=== PATIENT | female | born 1945 | race Caucasian/White ===

== ENCOUNTER 2017-11-22 17:11 | Inpatient (IN) ==
[2017-11-22 19:10] LABS: Basophils # 0.1 10*3/uL (0.0-0.2); Basophils % 0.8 % (0.0-0.8); Eosinophils # 0.1 10*3/uL (0.0-0.87); Eosinophils % 1.7 % (0.00-10.9); Hematocrit 41.3 VOL% (35.7-47.0); Hemoglobin 14.1 GM/DL (12.0-16.0); Immature Granulocytes % 0.3 %; Immature Granulocytes Absolute 0.02 #; Lymphocytes # 2.7 10*3/uL (1.4-4.0); Lymphocytes % 36.3 % (21.3-54.2); Mean Corpuscular HGB Conc 34.1 GM/DL (32-36); Mean Corpuscular Hemoglobin 32 PG (27-34); Mean Corpuscular Volume 94.5 FL (87-102); Mean Platelet Volume 9.9 FL (9.6-12.0); Monocytes # 0.6 10*3/uL (0.11-0.8); Monocytes % 7.3 % (1.7-12.7); Neutrophils % 53.6 % (38.7-73.9); Platelet Count 252 T/CUMM (130-400); Red Blood Count 4.37 MC/CUMM (3.8-5.5); Red Cell Distribution Width 12.4 % (9.3-17.3); White Blood Count 7.5 T/CUMM (4-12)
[2017-11-22 19:26] LABS: PT Patient Result 10.7 SECS
[2017-11-22 19:39] LABS: Albumin 4.2 G/DL (3.4-5.0); Bilirubin,Total 0.5 MG/DL (0.2-1.0); Calcium 9.1 MG/DL (8.5-10.1); Osmolality,Calculated 277.7 MOS/KG (273-304); Potassium 4.4 MMOL/L (3.5-5.1); Total Protein 7.6 G/DL (6.4-8.3)
[2017-11-22 19:41] LABS: Troponin I Only < 0.015 NG/ML (0.00-0.045)
[2017-11-22 20:11] LABS: Apearance,Urine CLOUDY (Clear); Bacteria,Urine Many /HPF (Few); Bilirubin,Urine Negative (Negative); Blood, Urine Negative (Negative); Glucose,Urine (UA) Negative (Negative); Ketones,Urine Negative (Negative); Mucus,Urine Moderate /LPF (Occasional); Nitrite,Urine Positive (Negative); Protein,Urine Negative; RBC,Urine 36 /HPF (0-4); Squamous Epithelial Cell,Urine Occasional /HPF (0-10); Urine Color Yellow (Yellow); Urine Specific Gravity 1.018 (1.001-1.035); Urine Urobilinogen < 2.0 EU/DL (0.2-1.0); WBC,Urine 7 /HPF (0-6)
[2017-11-22] MEDS ORDERED: LABETALOL 20 MG/4 ML SYRINGE IV PRN (20:50)
[2017-11-22 21:34] LABS: Risk Ratio 7.23; VLDL CHOLESTEROL 37.8 MG/DL
[2017-11-22] MEDS: SODIUM CHLORIDE 0.9% 1,000 ML IV SCH (22:40)
[2017-11-22] MEDS: ENOXAPARIN 40 MG/0.4 ML SYRINGE SUBCUT SCH (22:41)
[2017-11-22] MEDS: ROSUVASTATIN 20 MG TABLET PO SCH (22:41)
[2017-11-22] MEDS: LEVOFLOXACIN INJ 500 MG in PREMIX 1 EACH IV SCH (22:45)
[2017-11-23 08:34] LABS: Basophils # 0.1 10*3/uL (0.0-0.2); Eosinophils # 0.1 10*3/uL (0.0-0.87); Eosinophils % 1.9 % (0.00-10.9); Hematocrit 39.1 VOL% (35.7-47.0); Hemoglobin 13.6 GM/DL (12.0-16.0); Immature Granulocytes % 0.5 %; Immature Granulocytes Absolute 0.03 #; Lymphocytes # 2.5 10*3/uL (1.4-4.0); Lymphocytes % 40.3 % (21.3-54.2); Mean Corpuscular HGB Conc 34.8 GM/DL (32-36); Mean Corpuscular Hemoglobin 32 PG (27-34); Mean Corpuscular Volume 92.7 FL (87-102); Mean Platelet Volume 9.7 FL (9.6-12.0); Monocytes # 0.5 10*3/uL (0.11-0.8); Monocytes % 7.3 % (1.7-12.7); Neutrophils # 3.1 10*3/uL (1.4-7.4); Platelet Count 262 T/CUMM (130-400); Red Blood Count 4.22 MC/CUMM (3.8-5.5); Red Cell Distribution Width 12.6 % (9.3-17.3); White Blood Count 6.3 T/CUMM (4-12)
[2017-11-23] MEDS ORDERED: INFLUENZA VIRUS VACCINE 0.5 ML SYRINGE IM ONE (09:00)
[2017-11-23] MEDS: ASPIRIN 325 MG TABLET PO SCH (09:24)
[2017-11-23 09:35] LABS: Calcium 8.2 MG/DL (8.5-10.1); Osmolality,Calculated 276.5 MOS/KG (273-304); Potassium 4.1 MMOL/L (3.5-5.1)
[2017-11-23] MEDS: SODIUM CHLORIDE 0.9% 1,000 ML IV SCH (14:45)
[2017-11-23] MEDS ORDERED: AMITRIPTYLINE 25 MG TABLET PO SCH (21:00)
[2017-11-23] MEDS ORDERED: ESCITALOPRAM 10 MG TABLET PO SCH (21:00)
[2017-11-23] MEDS ORDERED: ESTRADIOL 1 MG TABLET PO SCH (21:00)
[2017-11-23] MEDS ORDERED: medroxyPROGESTERone 5 MG TABLET PO SCH (21:00)
[2017-11-23] MEDS: LEVOFLOXACIN INJ 500 MG in PREMIX 1 EACH IV SCH (21:02)
[2017-11-23] MEDS: ENOXAPARIN 40 MG/0.4 ML SYRINGE SUBCUT SCH (21:03)
[2017-11-23] MEDS: ROSUVASTATIN 20 MG TABLET PO SCH (21:03)
[2017-11-24] MEDS: ASPIRIN 325 MG TABLET PO SCH (08:38)
[2017-11-24 12:27] VITALS: BP 164/87
== END 2017-11-24 14:35 | disposition home or self-care (01) | DRG 65 ==
LOC: N.ED 17:11 → N.EDINP 20:50 → N.4E 21:48
PROVIDERS: ADMIT Internal Medicine; ATTEND Internal Medicine

== ENCOUNTER 2019-02-14 10:28 | Observation (INO) ==
[2019-02-14 11:05] LABS: Basophils # 0.1 10*3/uL (0.0-0.2); Eosinophils # 0.2 10*3/uL (0.0-0.87); Eosinophils % 2.5 % (0.00-10.9); Hematocrit 41.7 VOL% (35.7-47.0); Hemoglobin 13.6 GM/DL (12.0-16.0); Immature Granulocytes % 0.4 %; Immature Granulocytes Absolute 0.03 #; Lymphocytes # 2.4 10*3/uL (1.4-4.0); Mean Corpuscular HGB Conc 32.6 GM/DL (32-36); Mean Corpuscular Hemoglobin 31 PG (27-34); Mean Corpuscular Volume 93.5 FL (87-102); Mean Platelet Volume 10.4 FL (9.6-12.0); Monocytes # 0.5 10*3/uL (0.11-0.8); Neutrophils # 3.7 10*3/uL (1.4-7.4); Neutrophils % 54.1 % (38.7-73.9); Platelet Count 248 T/CUMM (130-400); Red Blood Count 4.46 MC/CUMM (3.8-5.5); White Blood Count 6.9 T/CUMM (4-12)
[2019-02-14 11:25] LABS: Alanine Aminotransferase 19 U/L (13-56); Albumin 4.1 G/DL (3.4-5.0); Alkaline Phosphatase 140 U/L (45-117); Aspartate Amino Transferase 20 U/L (0-37); Bilirubin,Total < 0.39 MG/DL (0.2-1.0); Blood Urea Nitrogen 24 MG/DL (7-18); Calcium 9.2 MG/DL (8.5-10.1); Glucose 93 MG/DL (74-106); Osmolality,Calculated 278.7 MOS/KG (273-304); Potassium 4.3 MMOL/L (3.5-5.1); Sodium 138 MMOL/L (136-145); Total Protein 7.3 G/DL (6.4-8.3)
[2019-02-14] MEDS ORDERED: SODIUM CHLORIDE 0.9% 500 ML IV STA (11:59)
[2019-02-14 13:20] LABS: Apearance,Urine CLEAR (Clear); Bilirubin,Urine Negative (Negative); Blood, Urine Negative (Negative); Glucose,Urine (UA) Negative (Negative); Hyaline Casts,Urine 1 /LPF (0-3); Ketones,Urine Negative (Negative); Mucus,Urine Occasional /LPF (Occasional); Nitrite,Urine Negative (Negative); Protein,Urine Negative; RBC,Urine 1 /HPF (0-4); Urine Color Colorless (Yellow); Urine Specific Gravity 1.004 (1.001-1.035); Urine Urobilinogen < 2.0 EU/DL (0.2-1.0); WBC,Urine 1 /HPF (0-6)
[2019-02-14] MEDS ORDERED: MORPHINE 4 MG/1 ML VIAL IV PRN (15:13)
[2019-02-14] MEDS ORDERED: ACETAMINOPHEN 325 MG TABLET PO PRN (15:13)
[2019-02-14] MEDS ORDERED: ONDANSETRON 4 MG/2 ML VIAL IV PRN (15:13)
[2019-02-14] MEDS: DEXAMETHASONE 0.1% OPH SOLN 5 ML BOTTLE LEFT EYE SCH ×3 (16:14→21:30)
[2019-02-14] MEDS: SODIUM CHLORIDE 0.9% 1,000 ML IV SCH (16:27)
[2019-02-14 16:56] LABS: Troponin I < 0.015 NG/ML (0.00-0.045)
[2019-02-14 18:39] LABS: Folate 13.4 NG/ML (5.4-24.0)
[2019-02-14] MEDS ORDERED: ENOXAPARIN 40 MG/0.4 ML SYRINGE SUBCUT SCH (21:00)
[2019-02-14] MEDS: ASPIRIN EC 81 MG TABLET PO SCH (21:25)
[2019-02-14] MEDS: AMITRIPTYLINE 25 MG TABLET PO SCH (21:25)
[2019-02-14] MEDS: ESCITALOPRAM 10 MG TABLET PO SCH (21:25)
[2019-02-14] MEDS: DOCUSATE SODIUM 100 MG CAPSULE PO SCH (21:32)
[2019-02-15] MEDS: SODIUM CHLORIDE 0.9% 1,000 ML IV SCH ×3 (01:06→17:58)
[2019-02-15 04:13] LABS: Basophils # 0.1 10*3/uL (0.0-0.2); Basophils % 0.8 % (0.0-0.8); Eosinophils # 0.2 10*3/uL (0.0-0.87); Eosinophils % 3.2 % (0.00-10.9); Hematocrit 36.5 VOL% (35.7-47.0); Hemoglobin 11.7 GM/DL (12.0-16.0); Immature Granulocytes % 0.3 %; Immature Granulocytes Absolute 0.02 #; Lymphocytes % 48.7 % (21.3-54.2); Mean Corpuscular HGB Conc 32.1 GM/DL (32-36); Mean Corpuscular Hemoglobin 30 PG (27-34); Mean Corpuscular Volume 94.3 FL (87-102); Mean Platelet Volume 10.5 FL (9.6-12.0); Monocytes # 0.5 10*3/uL (0.11-0.8); Monocytes % 7.9 % (1.7-12.7); Neutrophils # 2.4 10*3/uL (1.4-7.4); Neutrophils % 39.1 % (38.7-73.9); Platelet Count 213 T/CUMM (130-400); Red Blood Count 3.87 MC/CUMM (3.8-5.5); Red Cell Distribution Width 13.1 % (9.3-17.3); White Blood Count 6.2 T/CUMM (4-12)
[2019-02-15 04:27] LABS: Albumin 3.3 G/DL (3.4-5.0); Bilirubin,Total 0.8 MG/DL (0.2-1.0); Calcium 8.1 MG/DL (8.5-10.1); Osmolality,Calculated 280.4 MOS/KG (273-304); Risk Ratio 7.31; Total Protein 6.2 G/DL (6.4-8.3); VLDL CHOLESTEROL 50.2 MG/DL
[2019-02-15] MEDS: PANTOPRAZOLE 40 MG TABLET PO SCH (08:24)
[2019-02-15] MEDS: DOCUSATE SODIUM 100 MG CAPSULE PO SCH ×2 (08:24→22:30)
[2019-02-15] MEDS: DEXAMETHASONE 0.1% OPH SOLN 5 ML BOTTLE LEFT EYE SCH ×4 (08:25→22:28)
[2019-02-15] MEDS ORDERED: BISACODYL 5 MG TABLET PO PRN ×2 (15:21→15:28)
[2019-02-15] MEDS ORDERED: ENOXAPARIN 30 MG/0.3 ML SYRINGE SUBCUT SCH (21:00)
[2019-02-15] MEDS ORDERED: ZALEPLON 5 MG CAPSULE PO SCH (21:00)
[2019-02-15] MEDS: AMITRIPTYLINE 25 MG TABLET PO SCH (22:30)
[2019-02-15] MEDS: ASPIRIN EC 81 MG TABLET PO SCH (22:30)
[2019-02-15] MEDS: ESCITALOPRAM 10 MG TABLET PO SCH (22:30)
[2019-02-16] MEDS: SODIUM CHLORIDE 0.9% 1,000 ML IV SCH ×2 (01:01→10:34)
[2019-02-16] MEDS: PANTOPRAZOLE 40 MG TABLET PO SCH (09:05)
[2019-02-16] MEDS: DEXAMETHASONE 0.1% OPH SOLN 5 ML BOTTLE LEFT EYE SCH ×2 (09:06→13:32)
[2019-02-16] MEDS: DOCUSATE SODIUM 100 MG CAPSULE PO SCH (09:08)
[2019-02-16] MEDS ORDERED: ASCORBIC ACID 500 MG TABLET PO SCH (11:00)
[2019-02-16 11:55] VITALS: BP 134/66
[2019-02-17] MEDS ORDERED: ROSUVASTATIN 10 MG TABLET PO SCH (09:00)
== END 2019-02-16 14:18 | disposition home or self-care (01) ==
LOC: N.EDINP 10:28 → N.ED 10:28 → N.TELES 14:53 → N.TELEN 14:53
PROVIDERS: ADMIT Family Medicine; ATTEND Family Medicine